=== PATIENT | female | born 1990 | race Hispanic/Latino ===

== ENCOUNTER → 2022-05-25 | Day surgery (SDC) | payer BC ==
[~2022-05-25] MED LIST: Butorphanol Tartrate 1 MG/ML VIAL ONE; Butorphanol Tartrate 1 MG/ML VIAL SLOW IVP PRN; Lactated Ringer's 1,000 ML IV SCH; hydrALAZINE 20 MG/ML VIAL SLOW IVP PRN
[2022-05-25 22:35] VITALS: BMI 43.0
== END ==
LOC: CSHLD/OP 22:10
PROVIDERS: ATTEND Obstetrics & Gynecology
DX: O47.1 False labor at or after 37 completed weeks of gestation (principal); Z3A.38 38 weeks gestation of pregnancy
CPT/HCPCS: J0595

== ENCOUNTER 2022-05-28 11:43 | Day surgery (SDC) | payer BC ==
[2022-05-28 12:47] VITALS: BMI 43.0
[2022-05-28 13:26] LABS: Fetal Membranes Rupture No Membranes Rupture (No Rupture)
== END 2022-05-28 17:05 | disposition home or self-care (01) ==
LOC: CSHLD/OP 11:43
PROVIDERS: ATTEND Obstetrics & Gynecology
DX: O47.1 False labor at or after 37 completed weeks of gestation (principal); Z3A.38 38 weeks gestation of pregnancy; Z79.899 Other long term (current) drug therapy; Z90.49 Acquired absence of other specified parts of digestive tract; Z98.890 Other specified postprocedural states
CPT/HCPCS: 76819; 84112; 87480; 87510; 87660; 99285

== ENCOUNTER 2022-05-29 18:30 | Day surgery (SDC) | payer BC | END 2022-05-29 21:15 | disposition home or self-care (01) | LOC: CSHLD/OP 18:30 | PROVIDERS: ATTEND Obstetrics & Gynecology | DX: O99.891 Other specified diseases and conditions complicating pregnancy (principal); N89.8 Other specified noninflammatory disorders of vagina; Z3A.38 38 weeks gestation of pregnancy; Z79.899 Other long term (current) drug therapy; Z90.49 Acquired absence of other specified parts of digestive tract; Z98.890 Other specified postprocedural states | CPT/HCPCS: 59025; 76819; 99281 ==

== ENCOUNTER 2022-05-31 07:30 | Inpatient (IN) | payer BC, SELFPAY ==
[2022-06-01 10:43] LABS: Hemoglobin 12.6 g/dL (12.0-15.5); Platelet Count 170 10x3/uL (150-450)
[2022-06-01 11:10] LABS: SARS-CoV-2 NAA Rapid Test Not Detected (NotDetected)
[2022-06-01 11:14] LABS: Syphilis Antibody Nonreactive (Nonreactive); Syphilis Antibody Index 0.03 S/CO (<1.00 Non-Reactive)
[2022-06-01 11:15] LABS: HBSAg Index 0.13 S/CO (0-0.99); Hep B Surf Ag Non-Reactive S/CO (NonReactive)
[2022-06-02] MEDS ORDERED: Moisturizing Cream (Eucerin) 113 GM JAR TOP PRN (10:33)
[2022-06-02] MEDS ORDERED: Promethazine HCl 25 MG SUPP PR PRN (10:33)
[2022-06-02] MEDS ORDERED: Ondansetron PF 4 MG/2 ML Vial IVP PRN ×3 (10:33→15:54)
[2022-06-02] MEDS ORDERED: Fentanyl 100 MCG/2 ML VIAL SLOW IVP PRN (10:33)
[2022-06-02] MEDS ORDERED: diphenhydrAMINE 50 MG/ML VIAL IVP PRN (10:33)
[2022-06-02] MEDS ORDERED: Naloxone HCl 0.4 mg/ml Vial IVP PRN ×2 (10:33)
[2022-06-02] MEDS ORDERED: Ondansetron HCl/PF 4 MG/2 ML Vial IVP PRN (10:33)
[2022-06-02] MEDS ORDERED: Promethazine HCl 25 MG/ML VIAL IM PRN ×2 (10:33→13:15)
[2022-06-02] MEDS ORDERED: Naloxone HCl 0.4 mg/ml Vial IV PRN (10:33)
[2022-06-02] MEDS ORDERED: Meperidine HCl/PF 25 MG/ML VIAL SLOW IVP PRN (10:33)
[2022-06-02] MEDS ORDERED: Ondansetron PF 4 MG/2 ML Vial ONE (10:36)
[2022-06-02] MEDS ORDERED: Ketorolac Tromethamine 30 MG/ML VIAL ONE (10:36)
[2022-06-02] MEDS ORDERED: Dexamethasone 4 mg/ml Vial ONE (10:36)
[2022-06-02] MEDS ORDERED: Oxytocin 10 UNITS/ML VIAL ONE (10:37)
[2022-06-02] MEDS ORDERED: Metoclopramide HCl 10 MG/2 ML VIAL ONE (10:37)
[2022-06-02] MEDS ORDERED: Phenylephrine 40 MG/NS 250 ML 250 ML ONE (10:38)
[2022-06-02] MEDS ORDERED: Communication Order-Pharmacy FS SCH (10:45)
[2022-06-02] MEDS ORDERED: Morphine PF 10 MG/10 ML VIAL ONE (10:45)
[2022-06-02 10:51] VITALS: BMI 43.0
[2022-06-02] MEDS ORDERED: Famotidine/PF 20 mg/2ml Vial ONE (11:50)
[2022-06-02] MEDS ORDERED: Misoprostol 200 MCG TAB ONE (11:51)
[2022-06-02] MEDS ORDERED: CEFAZOLIN 2 GM VIAL ONE (11:51)
[2022-06-02] MEDS ORDERED: Carboprost 250 MCG/ML AMP ONE (11:52)
[2022-06-02] MEDS ORDERED: Methylergonovine 0.2 MG/ML VIAL ONE (11:52)
[2022-06-02] MEDS ORDERED: Famotidine/PF 20 mg/2ml Vial SLOW IVP PRN ×2 (13:11→13:15)
[2022-06-02] MEDS ORDERED: Bicitra 30 ML UDCUP PO PRN (13:15)
[2022-06-02] MEDS ORDERED: CEFAZOLIN 2 GM in Sodium Chloride 0.9% 100 ML IVPB SCH (13:15)
[2022-06-02] MEDS ORDERED: Lactated Ringer's 1,000 ML IV SCH (13:15)
[2022-06-02] MEDS ORDERED: hydrALAZINE 20 MG/ML VIAL SLOW IVP PRN ×2 (13:15→15:54)
[2022-06-02] MEDS ORDERED: Simethicone Chewable 80 MG TAB PO PRN (15:54)
[2022-06-02] MEDS ORDERED: NS w/ Oxytocin 30 units 500 ML IV SCH (15:54)
[2022-06-02] MEDS ORDERED: HYDROcodone/Acetaminophen 5/325 mg Tablet PO PRN (15:54)
[2022-06-02] MEDS ORDERED: diphenhydrAMINE 25 MG CAP PO PRN (15:54)
[2022-06-02] MEDS ORDERED: Lanolin Ointment 7 GM TUBE TOP PRN (15:54)
[2022-06-02] MEDS ORDERED: Bisacodyl 10 MG SUPP PR PRN (15:54)
[2022-06-02] MEDS ORDERED: Boostrix 0.5 ML (Tdap) VIAL (>/=7 yrs of age) IM ONE (15:54)
[2022-06-02] MEDS ORDERED: Ketorolac Tromethamine 30 MG/ML VIAL IVP PRN (18:30)
[2022-06-02] MEDS: Ketorolac Tromethamine 30 MG/ML VIAL IVP PRN (19:40)
[2022-06-02] MEDS: Docusate 100 MG CAP PO SCH (21:08)
[2022-06-02] MEDS: Ferrous Sulfate 325 MG TAB PO SCH (21:08)
[2022-06-03] MEDS: Ketorolac Tromethamine 30 MG/ML VIAL IVP PRN (03:51)
[2022-06-03 04:50] LABS: Hemoglobin 10.8 g/dL (12.0-15.5); Mean Corpuscular HGB CONC 33.3 g/dL (32.0-36.0); Mean Corpuscular Hemoglobin 27.4 pg (27.0-33.0); Mean Corpuscular Volume 82.2 fl (81.6-98.3); Mean Platelet Volume 12.1 fl (7.4-10.4); Platelet Count 173 10x3/uL (150-450); Red Blood Cell (RBC) Count 3.94 10x6/uL (3.90-5.03); White Blood Cell (WBC) Count 8.8 10x3/uL (3.5-10.5)
[2022-06-03] MEDS: Ferrous Sulfate 325 MG TAB PO SCH ×2 (08:25→21:16)
[2022-06-03] MEDS: Docusate 100 MG CAP PO SCH ×2 (08:28→21:17)
[2022-06-03] MEDS: Prenatal Vitamin 1 TAB PO SCH (08:28)
[2022-06-03] MEDS: HYDROcodone/Acetaminophen 5/325 mg Tablet PO PRN ×3 (08:29→22:04)
[2022-06-03] MEDS ORDERED: Moisturizing Cream (Eucerin) 113 GM JAR TOP PRN (12:23)
[2022-06-03] MEDS: Ibuprofen 800 MG TAB PO SCH ×2 (13:45→21:17)
[2022-06-04] MEDS: Ibuprofen 800 MG TAB PO SCH ×3 (05:47→21:34)
[2022-06-04] MEDS: Ferrous Sulfate 325 MG TAB PO SCH ×2 (07:06→21:22)
[2022-06-04] MEDS: Docusate 100 MG CAP PO SCH ×2 (08:17→21:34)
[2022-06-04] MEDS: Prenatal Vitamin 1 TAB PO SCH (08:17)
[2022-06-04] MEDS: HYDROcodone/Acetaminophen 5/325 mg Tablet PO PRN ×4 (08:17→21:34)
[2022-06-04 20:23] VITALS: TEMP 98.2
[2022-06-05] MEDS: HYDROcodone/Acetaminophen 5/325 mg Tablet PO PRN ×2 (03:06→08:49)
[2022-06-05] MEDS: Ibuprofen 800 MG TAB PO SCH (05:31)
[2022-06-05 08:39] VITALS: BP 119/66
[2022-06-05] MEDS: Prenatal Vitamin 1 TAB PO SCH (08:42)
[2022-06-05] MEDS: Docusate 100 MG CAP PO SCH (08:43)
[2022-06-05] MEDS: Ferrous Sulfate 325 MG TAB PO SCH (08:43)
== END 2022-06-05 12:29 | disposition home or self-care (01) | DRG 788 ==
LOC: CSHLD 06-02 10:18 → CSHPP 06-02 15:27
PROVIDERS: ADMIT Obstetrics & Gynecology; ATTEND Obstetrics & Gynecology
PROC: 10D00Z1 Extraction of Products of Conception, Low, Open Approach (ICD-10-PCS; principal; 2022-06-02)
DX: O34.211 Maternal care for low transverse scar from previous cesarean delivery (principal); Z3A.39 39 weeks gestation of pregnancy; Z37.0 Single live birth; Z20.822 Contact with and (suspected) exposure to COVID-19; O99.62 Diseases of the digestive system complicating childbirth; K66.0 Peritoneal adhesions (postprocedural) (postinfection); Z80.3 Family history of malignant neoplasm of breast; N73.6 Female pelvic peritoneal adhesions (postinfective); O99.892 Other specified diseases and conditions complicating childbirth
CPT/HCPCS: 36415; 51702; 85014; 85018; 85027; 85049; 86780; 86850; 86900; 86901; 87340; J1100; J1885; J2274; J2405; J2590; J2765; S0028; U0002